=== PATIENT | female | born 1960 | race Caucasian/White ===

== ENCOUNTER 2016-12-07 21:52 | Emergency (ER) | payer OTHER, SELFPAY ==
[2016-12-07] MEDS ORDERED: Oxymetazoline HCl 0.05% ( 15 ML ) ONE (22:25)
== END 2016-12-07 23:00 | disposition home or self-care (01) ==
LOC: NAV ERS 21:52
DX: R04.0 Epistaxis (principal); F32.9 Major depressive disorder, single episode, unspecified; Z79.899 Other long term (current) drug therapy
CPT/HCPCS: 30901

== ENCOUNTER 2016-12-08 00:12 | Emergency (ER) | payer OTHER ==
[2016-12-08 01:01] LABS: #Basophils 0.1 thou/uL (0.0-0.2); #Eosinphils 0.1 thou/uL (0.0-0.7); #Lymphocytes 2.9 thou/uL (1.20-3.40); #Monocytes 0.6 thou/uL (0.11-0.59); #Neutrophils 8.9 thou/uL (1.40-6.50); %Basophils 0.7 % (0.0-1.0); %Eosinophils 1.1 % (0.0-10.0); %Lymphocytes 22.8 % (21.0-51.0); %Monocytes 4.8 % (0.0-10.0); %Neutrophils 70.6 % (42.0-75.0); Mean Corpuscular HGB CONC 31.7 g/dL (32.0-36.0); Mean Corpuscular Hemoglobin 28.2 pg (27.0-31.0); Mean Corpuscular Volume 88.9 fl (81.0-99.0); Mean Platelet Volume 8.6 fL (7.4-10.4); Platelet Count 278 thou/uL (130-400); RBC Distribution Width 13.4 % (11.5-14.5); Red Blood Cell (RBC) Count 4.97 mill/uL (4.20-5.40); White Blood Cell (WBC) Count 12.7 thou/uL (4.8-10.8)
[2016-12-08 01:03] LABS: INR-International Normal Ratio 0.9; Prothrombin Time 12.4 SEC (12.0-14.7)
[2016-12-08] MEDS ORDERED: Sodium Chloride 0.9% 1,000 ML ONE (01:07)
[2016-12-08] MEDS ORDERED: Acetaminophen/Codeine 30-300mg Tablet ONE (01:07)
[2016-12-08 01:12] LABS: ALT (SGPT) 32 U/L (8-55); AST (SGOT) 20 U/L (5-34); Alkaline Phosphatase 115 U/L (40-150); Anion Gap 15 mmol/L (10-20); BUN (Urea Nitrogen) 22 mg/dL (9.8-20.1); Bilirubin, Total 0.5 mg/dL (0.2-1.2); Calc. Creatinine Clearance 0 mL/min (70-130); Calcium 9.4 mg/dL (7.8-10.44); Carbon Dioxide 25 mmol/L (22-29); Chloride 106 mmol/L (98-107); Estimated GFR-MDRD 56; Globulin 3.6 g/dL (2.4-3.5); Glucose 125 mg/dL (70-105); Potassium 4.1 mmol/L (3.5-5.1); Protein, Total 7.6 g/dL (6.0-8.3); Sodium 142 mmol/L (136-145)
[2016-12-08 01:14] LABS: CKMB 0.6 ng/mL (0-6.6); Troponin I Less than 0.010 ng/mL (< 0.028)
== END 2016-12-08 02:30 | disposition home or self-care (01) ==
LOC: NAV ERS 00:12
DX: R04.0 Epistaxis (principal); G43.909 Migraine, unspecified, not intractable, without status migrainosus; F32.9 Major depressive disorder, single episode, unspecified; Z79.899 Other long term (current) drug therapy
CPT/HCPCS: 30903; 80053; 82553; 84484; 85025; 85610; 93005; 96360; J7050

== ENCOUNTER 2022-07-10 08:39 | Emergency (ER) | payer OTHER ==
[2022-07-10] MEDS ORDERED: Iopamidol 370 76% 100 ML VIAL ONE (09:00)
[2022-07-10] MEDS ORDERED: Boostrix 0.5 ML (Tdap) VIAL (>/=7 yrs of age) ONE (10:03)
[2022-07-10] MEDS ORDERED: Bacitracin 1 PK ONE (10:03)
[2022-07-10] MEDS ORDERED: Metoprolol Tartrate 50 MG TAB ONE (10:14)
== END 2022-07-10 11:09 | disposition home or self-care (01) ==
LOC: NAV ERS 08:39
DX: S20.212A Contusion of left front wall of thorax, initial encounter (principal); S60.519A Abrasion of unspecified hand, initial encounter; V89.2XXA Person injured in unspecified motor-vehicle accident, traffic, initial encounter
CPT/HCPCS: 71260; 74177; 90471; 90715; G0390; Q9967